=== PATIENT | male | born 1975 | race Caucasian/White ===

== ENCOUNTER 2019-01-31 09:44 | Outpatient (CLI) | payer OTHER ==
--- NOTE | 2019-01-31 11:10 | RAD ---
LEFT KNEE FOUR VIEWS: History: Left anterior knee pain from an injury following a fall. FINDINGS: Mild degenerative changes. No fracture, dislocation, abnormal joint effusion or other significant acu te process. IMPRESSION: No significant acute process. No fracture or dislocation. POS: [facility]
== END 2019-01-31 09:45 | disposition home or self-care (01) ==
LOC: BICRAD 09:44
PROVIDERS: ATTEND Family Medicine
DX: M25.562 Pain in left knee (principal)

== ENCOUNTER 2019-12-24 12:35 | Outpatient (CLI) | payer OTHER | END 2019-12-24 12:36 | disposition home or self-care (01) | PROVIDERS: ATTEND Family Medicine | DX: I10 Essential (primary) hypertension (principal); E66.01 Morbid (severe) obesity due to excess calories; Z82.49 Family history of ischemic heart disease and other diseases of the circulatory system | CPT/HCPCS: 93017 ==